=== PATIENT | female | born 1980 | race Caucasian/White ===

== ENCOUNTER → 2017-01-10 | Outpatient (CLI) | payer OTHER ==
--- NOTE | 2017-01-10 11:53 | KCIC ---
Lumbar spine, five views Indication: Low back pain radiating to both legs. Time of exam 11:05 a.m. Five views of the lumbar spine were obtained. Curvature and alignment is normal. The lumbar vertebral body heights are well maintained. There is compression of the T12 vertebral body however. Age of this is indeterminate. There is also mild superior endplate fracture of T11. Disc spaces are well maintained. Impression: T12 compression fracture, age indeterminate. There may be slight superior compression of T11 as well. If there is concern for acuity, MRI would be recommended for further evaluation. Electronically signed by: Onel Elkins MD (January 10, 2017 11:52:07)
== END | disposition home or self-care (01) ==
LOC: KCIC 10:43
PROVIDERS: ATTEND Nurse Practitioner Family
DX: M54.5 Low back pain (principal)
CPT/HCPCS: 72110

== ENCOUNTER → 2017-01-16 | Outpatient (CLI) | payer OTHER ==
--- NOTE | 2017-01-16 10:37 | RAD ---
PROCEDURE MRI thoracic and lumbar spine without contrast. HISTORY Back pain, bilateral leg radiculopathy for 1 month left greater than right TECHNIQUE Multiplanar, multi sequential non contrast MR imaging was performed of the thoracic and lumbar spine. COMPARISON None FINDINGS Thoracic spine: There is fairly severe central height loss of T12, small focus of edema centrally and posteriorly up to 1 cm greatest dimension. There is no significant osseous retropulsion. There are other multilevel Schmorl's nodes such as inferiorly of T8 and T11 and also at T10 and T11. There is no other significant marrow edema. Intervertebral disc spaces are relatively preserved, mild degenerative disc disease T8-T9 and T10-11. Thoracic cord caliber is within limits without focal signal abnormality. There is no significant thoracic spinal stenosis at any level. Thoracic neural foramina are not significantly narrowed. Lumbar spine: There is fairly severe central height loss of L5 vertebral body without associated marrow edema with associated large Schmorl's nodes. There are small Schmorl's nodes more superiorly most notable superiorly of L2. There is no significant marrow edema of the lumbar spine. Conus terminates at L1-L2. Intervertebral disc spaces are relatively maintained. L1-L2: Spinal canal and neural foramina are adequate. L2-3: Spinal canal and neural foramina are adequate. L3-4: There are posterior and anterior annular tears. Spinal canal and the neural foramina are adequate. L4-5: Spinal canal and neural foramina are adequate. L5-S1: Spinal canal and neural foramina are adequate. IMPRESSION 1. There is severe central height loss of T12. There is a focus of nonspecific edema more centrally and posteriorly although findings are more likely to be older given lack of edema more anteriorly in the compressed vertebral body. Underlying pathologic fracture is considered less likely given relatively small focus of edema, no bony expansion. 2. There is old, severe central height loss of L5 not associated with significant marrow edema. There are associated large Schmorl's nodes, smaller Schmorl's nodes at other levels. 3. There is no significant thoracic or lumbar spinal stenosis. Electronically signed by: Ba Calhoun MD (January 16, 2017 10:35:51)
== END | disposition home or self-care (01) ==
LOC: MRI 07:42
PROVIDERS: ATTEND Nurse Practitioner Family
DX: M54.5 Low back pain (principal)
CPT/HCPCS: 72146; 72148